=== PATIENT | male | born 1990 | race Caucasian/White ===

== ENCOUNTER → 2016-06-01 | Outpatient (CLI) | payer OTHER ==
--- NOTE | 2016-06-01 16:29 | CR ---
EXAMINATION: Left wrist HISTORY: Presence of hardware COMPARISON: 04/27/2016 TECHNIQUE: 3 views FINDINGS: Screw and plate hardware is again noted fixating a distal radius fracture, grossly unchang ed in position and alignment. The remaining visualized osseous structures appear preserved. IMPRESSION: Stable screw and plate fixation of a distal radius fracture.
== END ==
LOC: MW.CHORTHO 08:00
PROVIDERS: ATTEND Orthopaedic Surgery
DX: Z96.7 Presence of other bone and tendon implants (principal); Z87.81 Personal history of (healed) traumatic fracture
CPT/HCPCS: 73110-26-LT; 73110-LT

== ENCOUNTER → 2016-06-29 | Outpatient (CLI) | payer OTHER ==
--- NOTE | 2016-06-29 16:49 | CR ---
EXAMINATION: Left wrist HISTORY: Hardware COMPARISON: 06/01/2016 TECHNIQUE: 2 views FINDINGS/IMPRESSION: Screw and plate hardware fixate a distal radius fracture. Position and alignmen t appear unchanged. The remaining osseous structures and joint spaces appear preserved.
== END | disposition home or self-care (01) ==
LOC: MW.CHORTHO 07:49
PROVIDERS: ATTEND Orthopaedic Surgery
DX: S52.502A Unspecified fracture of the lower end of left radius, initial encounter for closed fracture (principal); Z96.7 Presence of other bone and tendon implants; Z87.81 Personal history of (healed) traumatic fracture
CPT/HCPCS: 73100-26-LT; 73100-LT

== ENCOUNTER → 2016-07-29 | Outpatient (CLI) | payer OTHER ==
--- NOTE | 2016-07-29 16:24 | CR ---
EXAMINATION: Left wrist HISTORY: Pain COMPARISON: 06/29/2016 TECHNIQUE: 2 views FINDINGS/IMPRESSION: There is stable screw and plate fixation of a distal radius fracture, unchanged in position and alignment. The remaining osseous structures and joint spaces appear intact.
== END ==
LOC: MW.CHORTHO 07:39
PROVIDERS: ATTEND Student in an Organized Health Care Education/Training Program
DX: M25.532 Pain in left wrist (principal); Z96.7 Presence of other bone and tendon implants; Z87.81 Personal history of (healed) traumatic fracture
CPT/HCPCS: 73100-26-LT; 73100-LT